=== PATIENT | female | born 1955 | race Caucasian/White ===

== ENCOUNTER → 2024-02-24 15:05 | Outpatient (REF) | payer MEDICARE, OTHER, SELFPAY | LOC: WDC 15:05 | PROVIDERS: ATTENDING PHYSICIAN Family Medicine | DX: Z12.31 Encounter for screening mammogram for malignant neoplasm of breast (principal) | CPT/HCPCS: 77063; 77067 ==

== ENCOUNTER 2024-02-28 09:35 | Emergency (ER) | payer MEDICARE, OTHER, SELFPAY ==
[2024-02-28 09:45] VITALS: BP 181/95
[2024-02-28 11:49] VITALS: BP 171/89
[2024-02-28] MEDS: COZAAR 50 MG PO (11:49)
--- NOTE | 2024-02-28 11:52 | ED.GENMED ---
History of Present Illness
General
Chief Complaint: Dizziness
Time Seen by Provider: 02/28/24 11:09
History of Present Illness
History of Present Illness:
68-year-old female with history of hypertension presenting to the emergency department for dizziness and elevated blood pressure. Patient reports that she woke up around 4 AM and felt dizzy, described as 'woozy '. Also noted some blurriness to the
right eye and some tingling to the right upper extremity. She checked her blood pressure this morning, noted that it was elevated. She called her primary care doctor and was seen today in the office. Blood pressure was elevated, notes that she
has had issues with obtaining good blood pressure control, recently had her losartan increased. Her PCP again increased her losartan, now 100 mg daily. She denies any associated chest pain. She denies any shortness of breath or difficulty
breathing. Denies any fall or trauma. Denies any weakness or numbness to her lower extremities. Denies fever or systemic symptoms. Denies history of stroke in the past. Denies additional acute medical complaints.
Phy Exam
Physical Exam
Physical Exam:
General: Well-appearing, no clinical signs of dehydration, nontoxic and in no acute distress
HEENT: protecting airway, pupils equal and reactive, extraocular movements intact
Neck: appears supple
CV: Normal heart rate, regular rhythm
Resp: No accessory muscle use, no increased work of breathing, lungs clear to auscultation bilaterally
Abd: Soft and non-distended, no tenderness to palpation
Extremities: No deformities, no swelling, no erythema
Neuro: alert, no focal neurologic deficit
: deferred
Rectal: deferred
Psych: Normal affect
Skin: Intact
Course
Orders/Labs/Results
Orders:
Orders
02/28/24 09:36
Electrocardiogram (*1) Urgent
Reason for Study: Vertigo / Dizzy
EKG- Treatment ONCE
02/28/24 11:32
0.9% Sodium Chloride 1000 ml [Nss] 1,000 ml IV BOLUS
Losartan [Cozaar] 50 mg PO NOW STA
02/28/24 11:33
CT Head W/o Iv Contrast Urgent
Comment:
Reason For Exam: dizziness, HTN
02/28/24 11:50
Comprehensive Metabolic Panel Urgent
02/28/24 11:52
Complete Blood Count/With Diff Urgent
Troponin I Urgent
Abnormal Lab Results
02/28/24 02/28/24
11:50 11:52
RBC 3.95 L 10^6/uL
(4.20-5.40)
MCV 101.0 H fL
(81.0-99.0)
MCH 35.4 H pg
(27.0-31.0)
Monocytes % 9.9 H %
(1.7-9.3)
Eosinophils % 7.6 H %
(0-6)
AST 89 H U/L
(14-36)
ALT 70 H U/L
(0-35)
02/28/24 11:52
02/28/24 11:50
Vital Signs
Initial and Last Documented VS:
Initial Vital Signs
Temp Pulse Resp BP Pulse Ox
98.3 F 66 18 181/95 99
02/28/24 09:45 02/28/24 09:45 02/28/24 09:45 02/28/24 09:45 02/28/24 09:45
Last Documented Vital Signs
Temp Pulse Resp BP Pulse Ox
98.3 F 68 23 172/80 99
02/28/24 09:45 02/28/24 12:15 02/28/24 12:15 02/28/24 12:00 02/28/24 12:15
MDM/Problems Addressed
MDM/Problems Addressed:
68-year-old female with history of hypertension presenting for elevated blood pressure, dizziness, tingling to the right upper extremity. Vital signs on arrival are significant for high blood pressure.
On exam patient is well-appearing, no acute distress or discomfort. Benign cardiac, pulmonary, neurologic exam. No focal neurologic deficits. Intact strength and sensation bilaterally. Patient's blood pressure is high, possible hypertensive
urgency, lower suspicion for hypertensive emergency. EKG obtained, without signs of acute ischemia. Lower suspicion for CVA or TIA. Again no focal neurologic deficits. Will screen with CT brain given patient's presenting hypertension. Also
obtain laboratory analysis. Will administer additional dose of losartan, patient had 50 mg today, with plan to take 100 mg daily.
13:30 - Patient's labs are unremarkable. CT brain without acute intracranial abnormality. On reassessment patient remains stable. Feel stable for discharge, with current suspicion for hypertensive emergency. Advised continuation of increased
dose of losartan. Advised close interval follow-up with her primary care doctor. Return precautions discussed and patient verbalized under
*EKG
Interpreted by ED Provider?: Yes
EKG Intrepretation Date: 02/28/24
EKG Intrepretation Time: 11:58
Interpretation: normal
Comparison EKG: no comparison EKG present
Heart Rate: 66
Rate: normal
Rhythm: sinus
[place]: normal axis
Interval: normal interval
QRS Pattern: normal QRS
Ischemia: other (flattened T-waves V1-V6)
*Critical Care Note
Total Time (30-74mins, 75-104mins- exclusive of procedures): Not Applicable
ED Attending Note
-
Portions of this chart may have been created with voice recognition software.� Occasional wrong word or��sound alike� substitutions may have occurred due to the inherent limitations of voice recognition software.
Discharge Plan
Departure
Prescriptions:
No Action
cholecalciferol (vitamin D3) [Vitamin D3] 50 mcg (2,000 unit) Capsule
50 mcg PO DAILY
losartan 50 mg tablet
50 mg PO DAILY
cyanocobalamin (vitamin B-12) 500 mcg Tablet
500 mcg PO DAILY
Referrals:
Paty Abraham MD [Family Provider] -
Interventions
Interventions:
*Risk Screen - Suicide Last Done: 02/28/24 09:45
*General Assessment Last Done: 02/28/24 09:45
*Neglect/Abuse Screening Last Done: 02/28/24 09:45
*ED COVID-19 Vaccine History Last Done: 02/28/24 09:45
ED- Neurological Assessment Last Done: 02/28/24 11:56
ED Swallowing Screen Last Done: 02/28/24 11:56
Discharge Date and Time
Print Language: ALB[place]
[2024-02-28] MEDS: NSS 1000 IV (11:53)
[2024-02-28 12:00] VITALS: BP 172/80
[2024-02-28 12:07] LABS: % Basophils 0.4 % (0-2); % Eosinophils 7.6 % (0-6); % Immature Granulocytes 0.4 % (0-0.5); % Lymphocytes 22.8 % (20.5-51.1); % Monocytes 9.9 % (1.7-9.3); % Neutrophils 58.9 % (42.2-75.2); Absolute Eosinophils 0.4 10^3/uL (0-0.7); Absolute Lymphocytes 1.2 10^3/uL (1.2-3.4); Absolute Monocytes 0.5 10^3/uL (0.1-0.6); Hematocrit 39.9 % (37.0-47.0); Mean Corp Hgb Conc. 35.1 g/dL (33.0-37.0); Mean Corpuscular Hgb 35.4 pg (27.0-31.0); Mean Platelet Volume 10.3 fL (7.4-10.4); Nucleated Red Blood Cells % 0 %; Platelet Count 190 10^3/uL (130-400); Red Blood Cell Count 3.95 10^6/uL (4.20-5.40); Red Cell Dist. Width 12.3 % (11.5-14.5); White Blood Cell Count 5.1 10^3/uL (4.8-10.8)
[2024-02-28 12:22] LABS: ALT (SGPT) 70 U/L (0-35); AST (SGOT) 89 U/L (14-36); Albumin 4.3 g/dl (3.5-5.0); Alkaline Phosphatase 99 U/L (38-126); Blood Urea Nitrogen 13 mg/dl (7-17); Calcium 9.5 mg/dl (8.4-10.2); Carbon Dioxide 23 mmol/L (22-30); Chloride 107 mmol/L (98-107); Glucose 97 mg/dl (70-99); Potassium 4.1 mmol/L (3.5-5.1); Sodium 142 mmol/L (135-145); Total Bilirubin 0.5 mg/dl (0.2-1.3); eGFR > 60.00
[2024-02-28 12:34] LABS: Troponin I < 0.012 ng/ml
[2024-02-28 14:36] VITALS: BP 153/90
== END 2024-02-28 14:37 | disposition home or self-care (01) ==
LOC: EMR 09:35
PROVIDERS: Emergency Medicine; EMERGENCY PHYSICIAN Student in an Organized Health Care Education/Training Program; FAMILY PHYSICIAN Family Medicine
DX: R42 Dizziness and giddiness (principal); I10 Essential (primary) hypertension
CPT/HCPCS: 99285; 96360; 70450; 80053; 84484; 85025; 93005

== ENCOUNTER → 2024-04-05 09:23 | Outpatient (REF) | payer MEDICARE, OTHER, SELFPAY | LOC: RAD 09:23 | PROVIDERS: ATTENDING PHYSICIAN Internal Medicine Endocrinology, Diabetes & Metabolism; FAMILY PHYSICIAN Family Medicine | DX: M81.0 Age-related osteoporosis without current pathological fracture (principal) | CPT/HCPCS: 77080 ==

== ENCOUNTER → 2024-12-11 14:55 | Outpatient (REF) | payer MEDICARE, OTHER, SELFPAY | LOC: HWRAD 14:55 | PROVIDERS: ATTENDING PHYSICIAN Nurse Practitioner Family; FAMILY PHYSICIAN Family Medicine | DX: R05.1 Acute cough (principal) | CPT/HCPCS: 71046 ==

== ENCOUNTER → 2025-03-08 09:49 | Outpatient (REF) | payer MEDICARE, OTHER, SELFPAY | LOC: HWRAD 09:49 | PROVIDERS: ATTENDING PHYSICIAN Family Medicine | DX: R79.89 Other specified abnormal findings of blood chemistry (principal) | CPT/HCPCS: 76700 ==

== ENCOUNTER → 2025-03-23 14:08 | Outpatient (REF) | payer MEDICARE, OTHER, SELFPAY | LOC: WDC 14:08 | PROVIDERS: ATTENDING PHYSICIAN Family Medicine | DX: Z12.31 Encounter for screening mammogram for malignant neoplasm of breast (principal) | CPT/HCPCS: 77063; 77067 ==